=== PATIENT | male | born 1965 | race African-American/Black ===

== ENCOUNTER 2018-02-17 02:14 | Inpatient (IN) | payer OTHER ==
[2018-02-17] VITALS (10 sets, daily range): BP systolic 115–152; BP diastolic 73–99
[~2018-02-17] VITALS: Ht 172.7 cm; Wt 86.2 kg
[2018-02-17] MEDS ORDERED: PRINIVIL20 MG PO (02:24)
[2018-02-17] MEDS ORDERED: HYDROCHLOROTHIA25 M2 PO (02:24)
[2018-02-17] MEDS ORDERED: LOPRESSOR50 PO (02:25)
[2018-02-17 02:43] LABS: ABSOLUTE BASOPHILS 0.1 thou/uL (0.0-0.2); ABSOLUTE EOSINOPHILS 0.1 thou/uL (0.0-0.7); ABSOLUTE LYMPHOCYTES 2.2 thou/uL (0.8-5.3); ABSOLUTE MONOCYTES 0.4 thou/uL (0.0-1.2); ABSOLUTE NEUTROPHILS 3.4 thou/uL (1.6-8.1); EOSINOPHILS 2.3 %; HEMATOCRIT 49.1 % (42.0-52.0); HEMOGLOBIN 16.6 gm/dL (14.0-18.0); LYMPHOCYTES 35.6 %; MCH 30.9 pg (26.0-34.0); MCHC 33.8 g/dL (28.0-37.0); MCV 91.5 fL (80.0-100.0); MONOCYTES 6.7 %; MPV 7.3 fl. (7.2-11.1); NUCLEATED RBCS 0 /100WBC; PLATELET COUNT* 251 thou/uL (150-400); POLYS 54.4 %; RBC 5.36 mil/uL (4.50-6.00); RDW-CV 14.3 % (10.5-14.5); WBC 6.2 thou/uL (4.0-11.0)
[2018-02-17 02:53] LABS: ANION GAP 9 mmol/L (7-16); BUN 11 mg/dL (7-18); CALCIUM 9.1 mg/dL (8.5-10.1); CHLORIDE 102 mmol/L (98-107); CO2 28 mmol/L (21-32); CREATININE 1.3 mg/dL (0.6-1.3); GLUCOSE 122 mg/dL (70-99); POTASSIUM 3.3 mmol/L (3.5-5.1); SODIUM 139 mmol/L (136-145)
[2018-02-17 03:05] LABS: APTT 23.8 Seconds (25.0-31.3)
[2018-02-17 03:12] LABS: ALBUMIN 3.8 g/dL (3.4-5.0); ALKALINE PHOSPHATASE 59 U/L (46-116); CK-MB MASS 0.9 ng/mL (<0.5-3.6); LIPASE 148 U/L (73-393); MAGNESIUM 1.9 mg/dL (1.8-2.4); NT-PRO BRAIN NAT PEPTIDE 31 pg/mL (<300); SGOT 18 U/L (15-37); SGPT 24 U/L (30-65); TOTAL PROTEIN 7.7 g/dL (6.4-8.2); TROPONIN-I LEVEL <0.06 ng/mL (<0.06)
--- NOTE | 2018-02-17 07:06 | NUR ---
RECIEVED REPORT AND ASSUMED CARE FROM SHAISTA CEE RN. PT RESTING IN BED WITH EYES CLOSED UPON ENTERING ROOM. PT WAS AWOKEN PER REQUEST BY TAPING OF FOOT DUE TO PTSD WITH EASE. PT VITALS TAKEN AND STABLE. PT REPORTS NO PAIN. NURSE AT BEDSIDE TO COMPLETE ADMISSION ASSESSMENT. PT HAS NO COMPLAINTS TO REPORT AT THIS TIME. WILL CONTINUE TO MONITOR.
--- NOTE | 2018-02-17 07:14 | NUR ---
RECIEVED REPORT AND ASSUMED CARE FROM SHAISTA CEE RN. PT RESTING IN BED QUIETLY WITH EYES CLOSED UPON ENTERING THE ROOM. I INTRODUCED WHO I WAS TO THE PT AND THE PT DENIES ANY NEEDS AT THIS TIME. EXPLAINED WE WILL HAVE A BREAKFAST TRAY IN A WHILE AND PT VERBALIZES UNDERSTANDING. VITALS WERE TAKEN AND ARE STABLE AT THIS TIME. PT DENIES ANY PAIN. BED LOW, LOCKED, AND CALL LIGHT WITHIN REACH.
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
--- NOTE | 2018-02-17 09:41 | NUR ---
AFTER PT WISHED TO LEAVE [place], DR BROWN SPOKE TO PT AND EXPLAINED THAT HE WISHED FOR HIM TO HAVE A STRESS ECHO. PT AGREED TO STAY AND REICEVE TESTING. DOCTOR OF PODIATRY INFORMED THAT ROOM WILL STILL BE NEEDED. 

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
--- NOTE | 2018-02-17 14:17 | 2DMMODE ---
[place] [address] 2 D/M-MODE ECHOCARDIOGRAM Name: MARIA DEL ROSARIO ZEPEDA Jim Room: [address] IN [facility]#: [id number] Admission: 02/17/18 Attend Phys: Grant Jerez, Discharge: Date of : 67 Date of Service: 02/17/18 1417 Report #: [id number] THIS REPORT FOR: //name// APPROVED REPORT Study performed: 02/17/2018 09:51:44 EXAM: Comprehensive 2D, Doppler, and color-flow Echocardiogram Patient Location: In-Patient Room #: er Status: routine BSA: 2.00 HR: 69 bpm BP: 123/84 mmHg Rhythm: NSR Other Information Study Quality: Good Indications Syncope Chest Pain 2D Dimensions LVEF(%): 78.12 (>50%) IVSd: 17.11 (7-11mm) LVOT Diam: 20.44 (18-24mm) LVDd: 33.11 mm PWd: 16.98 (7-11mm) Ascending Ao: 32.83 (22-36mm) LVDs: 18.01 (25-40mm) Aortic Root: 35.78 mm Eason's LVEF: 78.12 % Volumes Left Atrial Volume (Systole) LA ESV Index: 20.80 mL/m2 Aortic Valve AoV Peak Dao.: 1.25 m/s AO Peak Gr.: 6.22 mmHg LVOT Max P.97 mmHg AO Mean Gr.: 3.43 mmHg LVOT Mean P.33 mmHg LVOT Max V: 1.11 m/s AO V2 VTI: 23.59 cm LVOT Mean V: 0.69 m/s TI (VTI): 3.18 cm2 LVOT V1 VTI: 22.87 [place] [address] 2 D/M-MODE ECHOCARDIOGRAM Name: MARIA DEL ROSARIO ZEPEDA Room: [address] IN [facility]#: [id number] Admission: 02/17/18 Attend Phys: Grant Jerez, Discharge: Date of : 67 Date of Service: 02/17/18 1417 Report #: [id number] E/A Ratio: 0.78 MV Decel. Time: 310.79 ms MV E Max Dao.: 0.41 m/s MV PHT: 90.13 ms MVA (PHT): 2.44 cm2 TDI E/Lateral E': 4.56 E/Medial E': 5.13 Medial E' Dao.: 0.08 m/s Lateral E' Dao.: 0.09 m/s Pulmonary Valve PV Peak Dao.: 0.72 m/s PV Peak Gr.: 2.10 mmHg Tricuspid Valve RAP Estimate: 5.00 mmHg TR Peak Gr.: 21.12 mmHg RVSP: 26.12 mmHg PA Pressure: 26.12 mmHg Left Ventricle The left ventricle is normal size. There is normal LV segmental wall motion. Moderate concentric left ventricular hypertrophy. Left ventricular systolic function is normal. LVEF is 70%. Grade I - abnormal relaxation pattern. Right Ventricle The right ventricle is normal size. The right ventricular systolic function is normal. Atria The left atrium size is normal. The right atrium size is normal. Aortic Valve The aortic valve is normal in structure. Trace aortic regurgitation. There is no aortic valvular stenosis. Mitral Valve The mitral valve is normal in structure. Trace mitral regurgitation. No evidence of mitral valve stenosis. Tricuspid Valve The tricuspid valve is normal in structure. Trace tricuspid regurgitation. No pulmonary hypertension[place] [address] 2 D/M-MODE ECHOCARDIOGRAM Name: MARIA DEL ROSARIO ZEPEDA Room: [address] IN [facility]#: [id number] Admission: 02/17/18 Attend Phys: Grant Jerez, Discharge: Date of : 67 Date of Service: 02/17/18 1417 Report #: [id number] The pulmonary valve is normal in structure. Mild pulmonic regurgitation. Great Vessels The aortic root is normal in size. IVC is normal in size and collapses with >50% inspiration Pericardium There is no pericardial effusion. <Conclusion> The left ventricle is normal size. Moderate concentric left ventricular hypertrophy. Left ventricular systolic function is normal. LVEF is 70%. Grade I - abnormal relaxation pattern. Trace aortic regurgitation. Trace mitral regurgitation. IVC is normal in size and collapses with >50% inspiration <ELECTRONICALLY SIGNED> By: Toni Szymanski MD, FACC 02/17/18 1417 141 141 Toni Szymanski MD, FACC /INF
--- NOTE | 2018-02-17 20:18 | EXE ---
[place] [address] STRESS ECHOCARDIOGRAM Name: MARIA DEL ROSARIO ZEPEDA Room: [address]#: [id number] Admission: 02/17/18 Attend Phys: Grant Jerez, Discharge: 02/17/18 Date of : 67 Date of Service: 02/17/182017 Report #: [id number] THIS REPORT FOR: //name// APPROVED REPORT Study performed: 02/17/2018 15:00:28 Exam: Stress Echocardiogram Indication: Syncope, Chest pain Patient Location: ER Stress Nurse: Fabiola Lewis RN Supervising Physician: Toni Szymanski MD Status: routine Ht: 5 ft 8 in HR: 73 bpm BP: 119/84 mmHg Rhythm: NSR Medical History Cardiac Risk Factors: HTN, Smoking Procedure The patient underwent an Exercise Stress Test using the Lenny Protocol. Blood pressure, heart rate, and EKG were monitored. An Echocardiogram was performed by decontamination technician in four stages in quad fashion. At peak stress, four selected images were obtained and placed side by side with resting images for comparison. Stress Test Details Stress Test: Exercise stress testing was performed using a Lenny protocol. HR Resting HR: 73 bpm Max Heart Rate (APMHR): 169 bpm Max HR Achieved: 124 bpm Target HR (85% APMHR): 143 bpm % of APMHR: 73 Recovery HR: 90 bpm HR response to stress: Blunted HR response to stress, Patient took beta jessica in the morning, was unable to reach target heart rate BP Resting BP: 191/84 mmHg Max BP: 182/89 mmHg Recovery BP: 123/78 [place] [address] STRESS ECHOCARDIOGRAM Name: MARIA DEL ROSARIO ZEPEDA Room: [address]#: [id number] Admission: 02/17/18 Attend Phys: Grant Jerez, Discharge: 02/17/18 Date of : 67 Date of Service: 02/17/182017 Report #: [id number] ECG Resting ECG: Sinus Rhythm, normal EKG Stress ECG: Sinus Tachycardia ST Change: None Arrhythmia: None Recovery ECG: Sinus Rhythm, normal EKG Recovery ST Change: None Recovery Arrhythmia: None Clinical Reason for Termination: Dyspnea, Maximal effort Stress Symptoms: Dyspnea Exercise duration: 5 min 4 sec Highest Stage Achieved: Stage 2: 2.5 mph at 12% grade. Exercise capacity: 7.05 METs The patient tolerated standard Lenny protocol exercise without difficulty. Stress ECG Conclusion The baseline 12-lead EKG shows sinus rhythm with no significant ST or T wave abnormalities. EKGs obtained during and post exercise showed sinus tachycardia with no significant ST or T wave changes when compared to baseline. There were no stress-induced arrhythmias. Pre-Stress Echo The resting Echocardiogram showed normal left ventricular contractility with an estimated Ejection Fraction of about 60-65%. Post-Stress Echo The stress Echocardiogram showed normal left ventricular contractility with an estimated Ejection Fraction of about >70%. Clinical No clinical or ECG evidence for ischemia. Conclusion Clinical Response: Non-ischemic Exercise Capacity: Below Average Stress ECG Response: Non-ischemic Stress Echo Images: Non-ischemic <ELECTRONICALLY SIGNED> By: Toni Szymanski MD, FACC 02/17/182017 17 17 Toni Szymanski MD, FACC /INF
--- NOTE | 2018-02-18 13:33 | EKG ---
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
--- NOTE | 2018-02-18 13:34 | EKG ---
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[place] : 1965 Requested By: Kali Buchanan Order Number: [id number] MD: Toni Szymanski Measurements Intervals [place] Rate: 68 P: 19 WV: 191 QRS: 59 QRSD: 84 T: 74 QT: 391 QTc: 416 Interpretive Statements Sinus rhythm ST elev, probable normal early repol pattern Baseline wander in lead(s) I,II,III,aVR,aVL,V3,V5,V6 No previous ECG available for comparison Electronically Signed On 02-18-2018 13:34:21 CDT by Toni Szymanski [email or web address] <ELECTRONICALLY SIGNED> By: Toni Szymanski MD, FAC 02/18/18 1334 4 Toni Szymanski MD, [facility] /EPI
== END 2018-02-17 16:25 | disposition home or self-care (01) | DRG 312 ==
LOC: M.ERS 02:14 → M.TBA-ER 03:19
PROVIDERS: Family Medicine; ADMIT Internal Medicine
DX: R55 Syncope and collapse (principal); I10 Essential (primary) hypertension; F17.210 Nicotine dependence, cigarettes, uncomplicated; R07.9 Chest pain, unspecified; Z79.899 Other long term (current) drug therapy; Z88.8 Allergy status to other drugs, medicaments and biological substances